=== PATIENT | male | born 1985 | race Caucasian/White ===

== ENCOUNTER 2018-01-24 14:40 | Emergency (ER) | payer SELFPAY ==
[2018-01-24] MEDS ORDERED: AZITHROMYCIN 250 MG TAB ONE (19:56)
[2018-01-24] MEDS ORDERED: LEVALBUTEROL 1.25 MG/3 ML NEB ONE (19:57)
[2018-01-24] MEDS ORDERED: CEFTRIAXONE/SWI 1gm 1 GM/10 ML SYR ONE (19:57)
--- NOTE | 2018-01-24 20:01 | RAD REPORT ---
EXAM DESCRIPTION: RAD - Chest Pa And Lat (2 Views) - 01/24/2018 6:40 pm CLINICAL HISTORY: Productive cough, pain COMPARISON: None. TECHNIQUE: PA and lateral views of the chest were obtained. FINDINGS: The lungs are clear. Heart size is normal and central vasculature is within normal limit s. No pleural effusion or pneumothorax seen. No acute bony finding noted. No aortic abnormality. IMPRESSION: No acute cardiopulmonary process.
[2018-01-24 20:17] LABS: Absolute Monocytes 0.4 K/uL (0.1-1.3); Absolute Neutrophil 2.9 K/uL (1.8-8.0); Basophils % 0.6 % (0-1.3); Eosinophils % 6.2 % (0-4.4); Hematocrit 41.7 % (39.6-49.0); Lymphocytes % 22.2 % (15.3-44.8); MCH 28.1 pg (27.0-35.0); MCV 83.8 fL (80-100); MPV 10.1 fL (7.6-11.3); Monocytes % 9.6 % (3.3-12.3); RBC Red Blood Cell Count 4.98 M/uL (4.33-5.43)
[2018-01-24 20:18] LABS: Bicarbonate 31 mEq/L (21-31); Glucose Level 106 mg/dL (65-120); Potassium 4.1 mEq/L (3.6-5.0); Sodium Level 136 mEq/L (135-145)
[2018-01-24 20:19] LABS: BUN Blood Urea Nitrogen 10 mg/dL (6-20)
[2018-01-24] MEDS ORDERED: LORazepam 2 MG/ML VIAL ONE (21:01)
--- NOTE | 2018-01-24 21:09 | ER ---
Nurse's Notes [facility] Name: Jeromy Hobbs Age: 32 yrs Sex: Male : 1985 Arrival Date: 01/24/2018 Time: 14:45 Bed 6 Private MD: Diagnosis: Bronchitis, not specified as acute or chronic Presentation: 01/24 14:46 Presenting complaint: Patient states: Productive cough, pain with cough, fever, and hb mild SOB x 4 days. Transition of care: patient was not received from another setting of care. Onset of symptoms was January 21, 2018. Risk Assessment: Do you want to hurt yourself or someone else? Patient reports no desire to harm self or others. Care prior to arrival: Medication(s) given: Tylenol, at 0900 today. 14:46 Method Of Arrival: Ambulatory hb 14:46 Acuity: RHETT 3 hb 21:20 Initial Sepsis Screen: Does the patient meet any 2 criteria? No. Patient's initial ao sepsis screen is negative. Does the patient have a suspected source of infection? No. Patient's initial sepsis screen is negative. Triage Assessment: 21:21 General: Appears Behavior is. Respiratory: the patient has moderate shortness of ao breath. Respiratory: Airway is patent Respiratory effort is even, unlabored. Historical: - Allergies: 14:48 No Known Allergies; hb - PMHx: 14:48 None; hb - Immunization history:: Adult Immunizations up to date. - Social history:: Smoking status: Patient uses tobacco products, smokes one pack cigarettes per day. - Ebola Screening: : No symptoms or risks identified at this time. Screenin:15 Abuse screen: Denies threats or abuse. Denies injuries from another. Nutritional sv screening: No deficits noted. Tuberculosis screening: No symptoms or risk factors identified. Fall Risk None identified. Assessment: 18:15 General: Appears in no apparent distress. uncomfortable, well developed, Behavior is sv calm, cooperative, appropriate for age, Reports chills for 2-3 days, feeling ill for 2-3 days. Pain: Complains of pain in chest and ribs Pain currently is 8 out of 10 on a pain scale. Quality of pain is described as sharp, tender, Pain began Wednesday Is intermittent, episodic, Aggravated by coughing. Neuro: Level of Consciousness is awake, alert, obeys commands, Oriented to person, place, time, situation, Moves all extremities. Full function Gait is steady, Speech is normal. Cardiovascular: Heart tones S1 S2 present Patient's skin is warm and dry. Pulses are 3+ in right brachial artery and left brachial artery. Respiratory: Reports cough that is productive, persistent pain with cough Airway is patent Respiratory effort is even, unlabored, Respiratory pattern is regular, symmetrical, Breath sounds with wheezes bilaterally. EENT: Oral mucosa is moist. Throat is clear Reports pain in left aspect of posterior pharynx and right aspect of posterior pharynx when swallowing. Derm: Skin is pink, warm \T\ dry. Musculoskeletal: Range of motion: intact in all extremities. 19:20 General: Appears in no apparent distress. comfortable, Behavior is calm, cooperative, ao appropriate for age. Pain: Denies pain. Neuro: Level of Consciousness is awake, alert, obeys commands, Moves all extremities. Speech is normal. Cardiovascular: Heart tones S1 S2 Capillary refill < 3 seconds Patient's skin is warm and dry. Respiratory: Airway is patent Respiratory effort is even, unlabored, Respiratory pattern is regular, symmetrical. GI: Abdomen is non-distended. : No signs and/or symptoms were reported regarding the genitourinary system. EENT: No signs and/or symptoms were reported regarding the EENT system. Derm: No signs and/or symptoms reported regarding the dermatologic system. Musculoskeletal: No signs and/or symptoms reported regarding the musculoskeletal system. 20:36 Reassessment: Patient appears in no apparent distress at this time. Patient and/or ao family updated on plan of care and expected duration. Pain level reassessed. Patient is alert, oriented x 3, equal unlabored respirations, skin warm/dry/pink. Delay in getting an IV. Waiting on dispo at this moment. Patient has no questions at this moment. 21:20 Cardiovascular: Rhythm is regular. ao 21:23 Reassessment: DC instructions given to patient. Patient agree with the POC and to ao follow up with PCP. Provided with a work note. Vital Signs: 14:47 BP 145 / 88; Pulse 91; Resp 18; Temp 98.6; Pulse Ox 97% on R/A; Weight 102.06 kg; hb Height 6 ft. (182.88 cm); Pain 8/10; 17:19 BP 154 / 100; Pulse 73; Resp 16; Temp 99; Pulse Ox 97% on R/A; Pain 8/10; hb 18:32 Pulse 76; Resp 20; Pulse Ox 99% on R/A; sv 19:30 BP 142 / 96; Pulse 83; Resp 18; Pulse Ox 99% on R/A; Pain 0/10; ao 20:36 BP 133 / 98; Pulse 82; Resp 16; Pulse Ox 98% on R/A; Pain 0/10; ao 14:47 Body Mass Index 30.52 (102.06 kg, 182.88 cm) hb ED Course: 14:45 Patient arrived in ED. hb 14:47 Triage completed. hb 14:47 Arm band placed on right wrist. hb 17:54 Ana Landeros, RN is Primary Nurse. sv 17:55 Patient taken to an exam room, via wheelchair. sv 18:15 Patient has correct armband on for positive identification. Placed in gown. Bed in low sv position. Adult w/ patient. Pulse ox on. Door closed. Head of bed elevated. 18:15 Missed attempt(s): 22 gauge in left antecubital area. Bleeding controlled, band aid sv applied, catheter tip intact. 18:25 Missed attempt(s): 22 gauge in right antecubital area. done by Ketty BENITEZ. Bleeding sv controlled, band aid applied, catheter tip intact. 18:32 Patient moved to radiology via wheelchair. sv 18:37 X-ray completed. Patient tolerated procedure well. ml 18:38 Patient moved back from radiology. ml 18:39 Chest Pa And Lat (2 Views) XRAY In Process Unspecified. EDMS 19:06 Report given to Steff BENITEZ, Sidney RN, Mateo RN. sv 19:07 Primary Nurse role handed off by Ana Landeros, EMMANUEL sv 19:08 Sidney Kwon, RN is Primary Nurse. ao 19:18 Prince Kilgore MD is Attending Physician. kdr 19:55 Inserted 18 gauge 10 cm midline to right upper basilic vein on first attempt. Line with fc good blood return and flushes well. 21:20 No provider procedures requiring assistance completed. IV discontinued, intact, ao bleeding controlled, No redness/swelling at site. Pressure dressing applied. Administered Medications: 20:22 Drug: Xopenex (3) 1.25 mg Route: Inhalation; mg2 22:31 Follow up: Response: No adverse reaction ao 20:23 Drug: Rocephin - (cefTRIAXone) 1 grams Route: IVPB; Infused Over: 30 mins; Site: right mg2 upper arm; 22:00 Follow up: Response: No adverse reaction; IV Status: Completed infusion; IV Intake: 10mlao 20:23 Drug: Zithromax 500 mg Route: PO; mg2 22:00 Follow up: Response: No adverse reaction ao 21:03 Drug: Ativan 1 mg Route: IVP; Site: right antecubital; mg2 22:32 Follow up: Response: No adverse reaction ao Intake: 22:00 IV: 10ml; Total: 10ml. ao Outcome: 21:09 Discharge ordered by . kdr 21:20 Discharged to home ambulatory. ao 21:20 Condition: stable 21:20 Discharge instructions given to patient, Instructed on discharge instructions, follow up and referral plans. Demonstrated understanding of instructions, follow-up care, medications, Prescriptions given X 2. 21:23 Patient left the ED. ao Signatures: Dispatcher [employer] EDAna Soni RN Prince Zapata MD MD kdr Chretien, Felicia, RN RN Jelly Kirk Alex RN RN Marsha Jennings RN RN Mateo Campos RN RN mg2 Corrections: (The following items were deleted from the chart) 18:31 18:15 General: Appears in no apparent distress. uncomfortable, well developed, Behavior sv is calm, cooperative, appropriate for age, sv 18:32 18:15 Respiratory: Airway is patent Respiratory effort is even, unlabored, Respiratory sv pattern is regular, symmetrical, Breath sounds with wheezes bilaterally. sv
--- NOTE | 2018-01-24 21:09 | EDPHYS ---
Physician Documentation [facility] Name: Jeromy Hobbs Age: 32 yrs Sex: Male : 1985 Arrival Date: 01/24/2018 Time: 14:45 Bed 6 Private MD: ED Physician Prince Kilgore HPI: 01/25 00:05 This 32 yrs old Male presents to ER via Ambulatory with complaints of kdr Shortness Of Breath, Painful Cough. 00:05 The patient has shortness of breath at rest, with light activity. Onset: The kdr symptoms/episode began/occurred gradually, 4 day(s) ago. Duration: The symptoms are continuous. Duration: The symptoms are continuous, and are steadily getting worse. The patient's shortness of breath is aggravated by coughing, eating, exertion, walking, is alleviated by nothing. Associated signs and symptoms: Pertinent positives: non-productive cough, fever, nausea, Pertinent negatives: dizziness, hemoptysis, nausea, numbness in extremities, visual changes. Severity of symptoms: At their worst the symptoms were mild moderate in the emergency department the symptoms are unchanged. The patient has not experienced similar symptoms in the past. The patient has not recently seen a physician. Historical: - Allergies: 01/24 14:48 No Known Allergies; hb - PMHx: 14:48 None; hb - Immunization history:: Adult Immunizations up to date. - Social history:: Smoking status: Patient uses tobacco products, smokes one pack cigarettes per day. - Ebola Screening: : No symptoms or risks identified at this time. ROS: 01/25 00:05 Constitutional: Negative for fever, chills, and weight loss, Eyes: Negative for injury, kdr pain, redness, and discharge, Neck: Negative for injury, pain, and swelling, Cardiovascular: Negative for chest pain, palpitations, and edema, Abdomen/GI: Negative for abdominal pain, nausea, vomiting, diarrhea, and constipation, Back: Negative for injury and pain, : Negative for injury, bleeding, discharge, and swelling, MS/Extremity: Negative for injury and deformity, Skin: Negative for injury, rash, and discoloration, Neuro: Negative for headache, weakness, numbness, tingling, and seizure activity. Psych: Negative for depression, anxiety, suicide ideation, homicidal ideation, and hallucinations, Allergy/Immunology: Negative for hives, rash, and allergies, Endocrine: Negative for neck swelling, polydipsia, polyuria, polyphagia, and marked weight changes, Hematologic/Lymphatic: Negative for swollen nodes, abnormal bleeding, and unusual bruising. Respiratory: Positive for cough, "sounds productive", dyspnea on exertion, pleurisy, shortness of breath, wheezing, inspiratory, expiratory. Exam: 00:05 Constitutional: This is a well developed, well nourished patient who is awake, alert, kdr and in no acute distress. Head/Face: Normocephalic, atraumatic. Eyes: Pupils equal round and reactive to light, extra-ocular motions intact. Lids and lashes normal. Conjunctiva and sclera are non-icteric and not injected. Cornea within normal limits. Periorbital areas with no swelling, redness, or edema. Neck: Trachea midline, no thyromegaly or masses palpated, and no cervical lymphadenopathy. Supple, full range of motion without nuchal rigidity, or vertebral point tenderness. No Meningismus. Chest/axilla: Normal chest wall appearance and motion. Nontender with no deformity. No lesions are appreciated. Cardiovascular: Regular rate and rhythm with a normal S1 and S2. No gallops, murmurs, or rubs. Normal PMI, no JVD. No pulse deficits. Abdomen/GI: Soft, non-tender, with normal bowel sounds. No distension or tympany. No guarding or rebound. No evidence of tenderness throughout. Back: No spinal tenderness. No costovertebral tenderness. Full range of motion. Skin: Warm, dry with normal turgor. Normal color with no rashes, no lesions, and no evidence of cellulitis. MS/ Extremity: Pulses equal, no cyanosis. Neurovascular intact. Full, normal range of motion. Neuro: Awake and alert, GCS 15, oriented to person, place, time, and situation. Cranial nerves II-XII grossly intact. Motor strength 5/5 in all extremities. Sensory grossly intact. Cerebellar exam normal. Normal gait. Psych: Awake, alert, with orientation to person, place and time. Behavior, mood, and affect are within normal limits. 00:05 Respiratory: the patient does not display signs of respiratory distress, Respirations: normal, Breath sounds: rales, that are moderate, are heard diffusely, bronchial sounds, that are moderate, are heard diffusely, rhonchi, that are mild, are scattered, are heard diffusely, stridor, is not appreciated, + upper airway congestion. wheezing: that is mild, is scattered, is heard diffusely, is actually worse than before. Vital Signs: 01/24 14:47 BP 145 / 88; Pulse 91; Resp 18; Temp 98.6; Pulse Ox 97% on R/A; Weight 102.06 kg; hb Height 6 ft. (182.88 cm); Pain 8/10; 17:19 BP 154 / 100; Pulse 73; Resp 16; Temp 99; Pulse Ox 97% on R/A; Pain 8/10; hb 18:32 Pulse 76; Resp 20; Pulse Ox 99% on R/A; sv 19:30 BP 142 / 96; Pulse 83; Resp 18; Pulse Ox 99% on R/A; Pain 0/10; ao 20:36 BP 133 / 98; Pulse 82; Resp 16; Pulse Ox 98% on R/A; Pain 0/10; ao 14:47 Body Mass Index 30.52 (102.06 kg, 182.88 cm) hb MDM: 21:09 Patient medically screened. kdr 01/25 00:05 Data reviewed: vital signs, nurses notes, lab test result(s), radiologic studies. kdr Counseling: I had a detailed discussion with the patient and/or guardian regarding: the historical points, exam findings, and any diagnostic results supporting the discharge/admit diagnosis, lab results, radiology results, the need for outpatient follow up. Special discussion: I discussed with the patient/guardian in detail that at this point there is no indication for admission to the hospital. It is understood, however, that if the symptoms persist or worsen the patient needs to return immediately for re-evaluation. 01/24 18:02 Order name: CBC with Diff; Complete Time: 21:08 sv 01/24 18:02 Order name: BMP; Complete Time: 21:08 sv 01/24 17:54 Order name: Chest Pa And Lat (2 Views) XRAY; Complete Time: 20:03 sv 01/24 19:27 Order name: Blood Culture Adult (2) kdr 01/24 18:02 Order name: IV Saline Lock; Complete Time: 20:23 sv 01/24 18:02 Order name: Labs collected and sent; Complete Time: 20:23 sv Administered Medications: 01/24 20:22 Drug: Xopenex (3) 1.25 mg Route: Inhalation; mg2 22:31 Follow up: Response: No adverse reaction ao 20:23 Drug: Rocephin - (cefTRIAXone) 1 grams Route: IVPB; Infused Over: 30 mins; Site: right mg2 upper arm; 22:00 Follow up: Response: No adverse reaction; IV Status: Completed infusion; IV Intake: 10mlao 20:23 Drug: Zithromax 500 mg Route: PO; mg2 22:00 Follow up: Response: No adverse reaction ao 21:03 Drug: Ativan 1 mg Route: IVP; Site: right antecubital; mg2 22:32 Follow up: Response: No adverse reaction ao Disposition: 01/24/18 21:09 Discharged to Home. Impression: Bronchitis, not specified as acute or chronic. - Condition is Stable. - Discharge Instructions: How to Use an Inhaler, Acute Bronchitis, [id number]. - Prescriptions for Zithromax Z- Nate 250 mg Oral Tablet - take 1 tablet by ORAL route once daily for 4 days; 4 tablet. Albuterol Sulfate 90 mcg/actuation - inhale 1-2 puff by INHALATION route every 4-6 hours; 1 Inhaler. - Medication Reconciliation Form, Thank You Letter, Antibiotic Education, Prescription Opioid Use, Work release form form. - Follow up: Private Physician; When: 2 - 3 days; Reason: If symptoms return, Further diagnostic work-up, Recheck today's complaints, Continuance of care, Re-evaluation by your physician. - Problem is new. - Symptoms have improved. Signatures: Dispatcher [employer] Ana Soni RN RN Prince Lindsey MD MD [facility] Sidney Kwon RN RN ao Baxter, Heather, RN RN Mateo Campos RN RN mg2 Corrections: (The following items were deleted from the chart) 21:23 21:09 01/24/2018 21:09 Discharged to Home. Impression: Bronchitis, not specified as ao acute or chronic. Condition is Stable. Forms are Medication Reconciliation Form, Thank You Letter, Antibiotic Education, Prescription Opioid Use. Follow up: Private Physician; When: 2 - 3 days; Reason: If symptoms return, Further diagnostic work-up, Recheck today's complaints, Continuance of care, Re-evaluation by your physician. Problem is new. Symptoms have improved. kdr
== END 2018-01-24 21:23 | disposition home or self-care (01) ==
LOC: ER 14:40
DX: J40 Bronchitis, not specified as acute or chronic (principal); F17.210 Nicotine dependence, cigarettes, uncomplicated
CPT/HCPCS: 36415; 71046; 80048; 85025; 87040; 96365; 96366; 96375; 99284; J0696

== ENCOUNTER 2018-02-16 19:15 | Emergency (ER) | payer OTHER, SELFPAY ==
--- NOTE | 2018-02-16 21:06 | ER ---
Nurse's Notes [facility] Name: Jeromy Hobbs Age: 32 yrs Sex: Male : 1985 Arrival Date: 02/16/2018 Time: 19:16 Bed 15 Private MD: Diagnosis: Strain of other muscle(s) and tendon(s) at lower leg level, right leg Presentation: 02/16 19:18 Presenting complaint: Patient states: "I don't know what I did to my left foot but it aj1 started hurting in the middle of the night on Wednesday, so on Wednesday I went to work, it was hurting a lot so my job sent me home and told me to go see the doctor. My foot doesn't hurt anymore but now my calf is really hurting." Denies any recent long car/plane trips. No redness or swelling noted to left calf. Transition of care: patient was not received from another setting of care. Onset of symptoms was February 14, 2018. Risk Assessment: Do you want to hurt yourself or someone else? Patient reports no desire to harm self or others. Initial Sepsis Screen: Does the patient meet any 2 criteria? No. Patient's initial sepsis screen is negative. Does the patient have a suspected source of infection? No. Patient's initial sepsis screen is negative. Care prior to arrival: None. 19:18 Method Of Arrival: Ambulatory aj 19:18 Acuity: RHETT 4 aj1 Triage Assessment: 19:23 General: Appears in no apparent distress. comfortable, Behavior is calm, cooperative, aj1 appropriate for age. Pain: Complains of pain in left calf Pain does not radiate. Pain currently is 5 out of 10 on a pain scale. Quality of pain is described as "pulling" Pain began 2-3 days ago. Is continuous, Aggravated by repositioning. EENT: No signs and/or symptoms were reported regarding the EENT system. Neuro: Level of Consciousness is awake, alert, obeys commands. Cardiovascular: Patient's skin is warm and dry. Respiratory: Airway is patent Respiratory effort is even, unlabored, Respiratory pattern is regular, symmetrical. Derm: Skin is pink, warm \\T\\ dry. normal. Musculoskeletal: Circulation, motion, and sensation intact. Range of motion: intact in all extremities. Historical: - Allergies: 19:23 No Known Allergies; aj1 - Home Meds: 19:23 suboxone [Active]; aj1 - PMHx: 19:23 None; aj1 - PSHx: 19:23 surgery for broken femur; aj1 - Immunization history:: Flu vaccine is not up to date. - Social history:: Smoking status: Patient uses tobacco products, smokes one pack cigarettes per day. - Ebola Screening: : Patient denies travel to an Ebola-affected area in the 21 days before illness onset. Screenin:01 Abuse screen: Denies threats or abuse. Denies injuries from another. Nutritional ao screening: No deficits noted. Tuberculosis screening: No symptoms or risk factors identified. Fall Risk None identified. Assessment: 19:59 General: Appears in no apparent distress. comfortable, Behavior is calm, cooperative, ao appropriate for age. Pain: Denies pain. Neuro: Level of Consciousness is awake, alert, obeys commands, Oriented to person, place, time, situation, Appropriate for age Moves all extremities. Speech is normal, Facial symmetry appears normal. Cardiovascular: Capillary refill < 3 seconds Patient's skin is warm and dry. Respiratory: Airway is patent Respiratory effort is even, unlabored, Respiratory pattern is regular, symmetrical. GI: Abdomen is flat, non-distended. : No signs and/or symptoms were reported regarding the genitourinary system. EENT: No signs and/or symptoms were reported regarding the EENT system. Derm: Reports burning, pain that is 3 out of 10 on a pain scale. in the left calf. Musculoskeletal: Range of motion: intact in all extremities, Reports pain in left leg and left calf. 20:42 Reassessment: Patient appears in no apparent distress at this time. Patient and/or ao family updated on plan of care and expected duration. Pain level reassessed. Patient is alert, oriented x 3, equal unlabored respirations, skin warm/dry/pink. 21:28 Reassessment: Discharge instructions given to patient. Patient agree with the POC and ao to follow up with PCP. Provided with a work note. Patient has no questions at this time. Vital Signs: 19:23 BP 153 / 106; Pulse 91; Resp 18; Temp 99.1; Pulse Ox 100% on R/A; Weight 102.06 kg (R); aj1 Height 6 ft. 0 in. (182.88 cm); Pain 5/10; 20:42 BP 148 / 96; Pulse 92; Resp 16; Pulse Ox 100% ; ao 19:23 Body Mass Index 30.52 (102.06 kg, 182.88 cm) [facility] ED Course: 19:16 Patient arrived in ED. ds1 19:18 Jose Miguel Sharpe PA is PHCP. [facility] 19:18 Zurdo Patel MD is Attending Physician. [facility] 19:22 Triage completed. aj1 19:23 Arm band placed on Patient placed in an exam room. aj1 19:57 Sidney Kwon, RN is Primary Nurse. ao 20:02 Patient has correct armband on for positive identification. Pulse ox on. NIBP on. ao 20:34 Patient taken to ultrasound. via wheelchair. lc3 20:34 Ultrasound completed. Patient tolerated well. Patient moved back from ultrasound. lc3 20:35 US Extremity Venous Unilateral Ltd In Process Unspecified. EDMS 21:29 No provider procedures requiring assistance completed. Patient did not have IV access ao during this emergency room visit. Administered Medications: No medications were administered Outcome: 21:06 Discharge ordered by MD. m 21:29 Discharged to home ambulatory. ao 21:29 Condition: stable 21:29 Discharge instructions given to patient, Instructed on discharge instructions, follow up and referral plans. Demonstrated understanding of instructions, follow-up care, medications, Prescriptions given X 1. 21:30 Patient left the ED. ao Signatures: Dispatcher [employer] EDMS Yanely Hobbs, EMMANUEL RN aj Jose Miguel Sharpe PA PA [facility] Digna Olvera ds1 Nacho Odom lc3 Sidney Kwon, RN RN ao
--- NOTE | 2018-02-16 21:06 | EDPHYS ---
Physician Documentation [facility] Name: Jeromy Hobbs Age: 32 yrs Sex: Male : 1985 Arrival Date: 02/16/2018 Time: 19:16 Bed 15 Private MD: ED Physician Zurdo Patel HPI: 02/16 19:28 This 32 yrs old Male presents to ER via Ambulatory with complaints of Foot jmm Pain. 19:28 The patient presents with pain, that is acute. Onset: The symptoms/episode jmm began/occurred gradually. This is a 32 year old male with no chronic medical conditions that presents to the ED with right lower leg pain. The patient states the pain initially began as foot pain. The patient does not currently have foot pain but states he has developed right calf pain today. Denies chest pain or shortness of breath. Denies fever. Denies trauma. Historical: - Allergies: 19:23 No Known Allergies; aj1 - Home Meds: 19:23 suboxone [Active]; aj1 - PMHx: 19:23 None; aj1 - PSHx: 19:23 surgery for broken femur; aj1 - Immunization history:: Flu vaccine is not up to date. - Social history:: Smoking status: Patient uses tobacco products, smokes one pack cigarettes per day. - Ebola Screening: : Patient denies travel to an Ebola-affected area in the 21 days before illness onset. ROS: 19:28 Constitutional: Negative for fever, chills, and weight loss. jmm 19:28 Respiratory: Negative for shortness of breath. 19:28 MS/extremity: Positive for pain. 19:28 All other systems are negative. Exam: 19:28 Constitutional: This is a well developed, well nourished patient who is awake, alert, jmm and in no acute distress. Eyes: EOMI, no conjunctival erythema appreciated ENT: Moist Mucus Membranes Neck: Trachea midline, Supple Cardiovascular: Regular rate and rhythm. No edema appreciated Respiratory: Normal respirations, no respiratory distress appreciated 19:28 Musculoskeletal/extremity: pain noted to the right lower leg, no swelling or erythema appreciated. 19:28 Skin: Appearance: Color: normal in color. 19:28 Neuro: Orientation: is normal, Mentation: is normal, Memory: is normal, Gait: is steady. 19:28 Psych: Behavior/mood is pleasant, cooperative. Vital Signs: 19:23 BP 153 / 106; Pulse 91; Resp 18; Temp 99.1; Pulse Ox 100% on R/A; Weight 102.06 kg (R); aj1 Height 6 ft. 0 in. (182.88 cm); Pain 5/10; 20:42 BP 148 / 96; Pulse 92; Resp 16; Pulse Ox 100% ; ao 19:23 Body Mass Index 30.52 (102.06 kg, 182.88 cm) aj1 MDM: 19:[address] [facility] 21:03 Data reviewed: vital signs, nurses notes. Counseling: I had a detailed discussion with tomas the patient and/or guardian regarding: the historical points, exam findings, and any diagnostic results supporting the discharge/admit diagnosis, radiology results, the need for outpatient follow up, to return to the emergency department if symptoms worsen or persist or if there are any questions or concerns that arise at home. ED course: Symptoms appear most likely due to a strain of his gastrocnemius. US negative for DVT. Patient advised to follow up with PCP for reevaluation. Patient understood and agrees with the plan of care. . 02/16 19:46 Order name: US Extremity Venous Unilateral Ltd; Complete Time: 21:14 [facility] Administered Medications: No medications were administered Disposition: 02/17 03:44 Co-signature as Attending Physician, Zurdo Patel MD. Disposition: 02/16/18 21:06 Discharged to Home. Impression: Strain of other muscle(s) and tendon(s) at lower leg level, right leg. - Condition is Stable. - Discharge Instructions: Muscle Strain. - Prescriptions for Ibuprofen 800 mg Oral Tablet - take 1 tablet by ORAL route every 8 hours As needed take with food; 30 tablet. - Medication Reconciliation Form, Thank You Letter, Antibiotic Education, Prescription Opioid Use, Work release form form. - Follow up: Private Physician; When: 2 - 3 days; Reason: Continuance of care. Signatures: Dispatcher [employer] EDMS Yanely Hobbs RN RN aj1 Jose Miguel Sharpe PA PA jmm Ortiz, Alex, RN RN ao Starr, Gregory, MD MD gs Corrections: (The following items were deleted from the chart) 02/16 21:30 21:06 02/16/2018 21:06 Discharged to Home. Impression: Strain of other muscle(s) and ao tendon(s) at lower leg level, right leg. Condition is Stable. Forms are Medication Reconciliation Form, Thank You Letter, Antibiotic Education, Prescription Opioid Use. Follow up: Private Physician; When: 2 - 3 days; Reason: Continuance of care. tomas
--- NOTE | 2018-02-16 21:12 | RAD REPORT ---
EXAM DESCRIPTION: WARRENExalisha Venous Uni Ltd02/16/2018 8:36 pm CLINICAL HISTORY: Right leg pain and swelling. COMPARISON: None. FINDINGS: Right common femoral, superficial femoral, popliteal and right posterior tibial veins are compressible and demonstrate augmentation. Doppler demonstrates good flow. IMPRESSION: No evidence of deep venous thrombosis involving the right lower extremity.
== END 2018-02-16 21:30 | disposition home or self-care (01) ==
LOC: ER 19:15
DX: S86.911A Strain of unspecified muscle(s) and tendon(s) at lower leg level, right leg, initial encounter (principal); X58.XXXA Exposure to other specified factors, initial encounter; Y93.9 Activity, unspecified; Y92.9 Unspecified place or not applicable; F17.210 Nicotine dependence, cigarettes, uncomplicated
CPT/HCPCS: 93971; 99284

== ENCOUNTER 2018-09-01 12:28 | Emergency (ER) | payer OTHER, SELFPAY ==
[2018-09-01] MEDS ORDERED: NA CHLORIDE 0.9% 1,000 ML ONE (14:24)
[2018-09-01 14:42] LABS: Albumin 4.2 g/dL (3.4-5.0); Bilirubin Direct 0.1 mg/dL (0-0.2); Bilirubin Total 0.4 mg/dL (0.2-1.0); Potassium 3.8 mmol/L (3.5-5.1); Protein, Total 8.1 g/dL (6.4-8.2)
--- NOTE | 2018-09-01 14:47 | EDPHYS ---
Physician Documentation [facility] Name: Jeromy Hobbs Age: 32 yrs Sex: Male : 1985 Arrival Date: 09/01/2018 Time: 12:41 Bed 19 Private MD: ED Physician Prince Kilgore HPI: 09/01 13:08 This 32 yrs old Male presents to ER via EMS with complaints of Palpitations. snw 13:08 The patient presents with a history of heart racing. Context: The symptoms occur with snw light activity. Onset: The symptoms/episode began/occurred suddenly, x 2 days, pt states he drank a Monster yest and today and thinks maybe "freaked" himself out. Duration: The patient or guardian reports multiple episodes, that have now resolved. Associated signs and symptoms: The patient has no apparent associated signs or symptoms. Severity of symptoms: At their worst the symptoms were moderate severe. The patient has not experienced similar symptoms in the past. The patient has not recently seen a physician. Historical: - Allergies: 12:44 No Known Allergies; ls4 - Home Meds: 12:44 Suboxone [Active]; ls4 - PMHx: 12:44 None; ls4 - Immunization history:: Adult Immunizations up to date. - Social history:: Smoking status: Patient/guardian denies using tobacco, but has a distant history of tobacco abuse. - Ebola Screening: : No symptoms or risks identified at this time. ROS: 13:08 Constitutional: Negative for fever, chills, and weight loss, Eyes: Negative for injury, snw pain, redness, and discharge, ENT: Negative for injury, pain, and discharge, Neck: Negative for injury, pain, and swelling, Respiratory: Negative for shortness of breath, cough, wheezing, and pleuritic chest pain, Abdomen/GI: Negative for abdominal pain, nausea, vomiting, diarrhea, and constipation, Back: Negative for injury and pain, : Negative for injury, bleeding, discharge, and swelling, MS/Extremity: Negative for injury and deformity, Skin: Negative for injury, rash, and discoloration, Neuro: Negative for headache, weakness, numbness, tingling, and seizure, Psych: Negative for depression, anxiety, suicide ideation, homicidal ideation, and hallucinations. 13:08 Cardiovascular: Positive for chest pain, palpitations. Exam: 13:06 Constitutional: This is a well developed, well nourished patient who is awake, alert, snw and in no acute distress. Head/Face: Normocephalic, atraumatic. Eyes: Pupils equal round and reactive to light, extra-ocular motions intact. Lids and lashes normal. Conjunctiva and sclera are non-icteric and not injected. Cornea within normal limits. Periorbital areas with no swelling, redness, or edema. ENT: Nares patent. No nasal discharge, no septal abnormalities noted. Tympanic membranes are normal and external auditory canals are clear. Oropharynx with no redness, swelling, or masses, exudates, or evidence of obstruction, uvula midline. Mucous membranes moist. Neck: Trachea midline, no thyromegaly or masses palpated, and no cervical lymphadenopathy. Supple, full range of motion without nuchal rigidity, or vertebral point tenderness. No Meningismus. Chest/axilla: Normal chest wall appearance and motion. Nontender with no deformity. No lesions are appreciated. Respiratory: Lungs have equal breath sounds bilaterally, clear to auscultation and percussion. No rales, rhonchi or wheezes noted. No increased work of breathing, no retractions or nasal flaring. Abdomen/GI: Soft, non-tender, with normal bowel sounds. No distension or tympany. No guarding or rebound. No evidence of tenderness throughout. Back: No spinal tenderness. No costovertebral tenderness. Full range of motion. Skin: Warm, dry with normal turgor. Normal color with no rashes, no lesions, and no evidence of cellulitis. MS/ Extremity: Pulses equal, no cyanosis. Neurovascular intact. Full, normal range of motion. Neuro: Awake and alert, GCS 15, oriented to person, place, time, and situation. Cranial nerves II-XII grossly intact. Motor strength 5/5 in all extremities. Sensory grossly intact. Cerebellar exam normal. Normal gait. 13:06 Cardiovascular: Rate: tachycardic, Rhythm: regular, Pulses: no pulse deficits are appreciated, Heart sounds: normal, Edema: is not appreciated. Vital Signs: 12:44 BP 161 / 86; Pulse 101; Resp 18; Temp 98.4; Pulse Ox 97% on R/A; Pain 3/10; ls4 14:37 BP 143 / 87; Pulse 91; Resp 16; Temp 98.2; Pulse Ox 99% on R/A; Pain 3/10; ls4 15:04 BP 152 / 78; Pulse 78; Resp 18; Pulse Ox 98% on R/A; Pain 3/10; ls4 MDM: 12:58 Patient medically screened. snw 14:54 Data reviewed: vital signs, nurses notes. Data interpreted: Pulse oximetry: on room air snw is 99 %. Interpretation: normal. Counseling: I had a detailed discussion with the patient and/or guardian regarding: the historical points, exam findings, and any diagnostic results supporting the discharge/admit diagnosis, the presence of at least one elevated blood pressure reading (>120/80) during this emergency department visit, lab results, the need for outpatient follow up, to return to the emergency department if symptoms worsen or persist or if there are any questions or concerns that arise at home. Special discussion: Based on the history and exam findings, there is no indication for further emergent testing or inpatient evaluation. I discussed with the patient/guardian the need to see the primary care provider for further evaluation of the symptoms. 09/01 13:06 Order name: Basic Metabolic Panel; Complete Time: 14:45 snw 09/01 13:06 Order name: CBC with Diff snw 09/01 12:42 Order name: EKG; Complete Time: 12:42 snw 09/01 12:42 Order name: EKG - Nurse/Tech; Complete Time: 13:01 snw 09/01 13:06 Order name: Hepatic Function; Complete Time: 14:45 snw 09/01 13:06 Order name: IV Saline Lock; Complete Time: 14:34 snw 09/01 13:06 Order name: Labs collected and sent; Complete Time: 14:34 snw Administered Medications: 14:05 Drug: NS 0.9% 1000 ml Route: IV; Rate: 1 bolus; Site: right hand; ls4 15:09 Follow up: IV Status: Completed infusion; IV Intake: 1000ml ls4 Disposition: 09/01/18 14:46 Discharged to Home. Impression: Palpitations. - Condition is Stable. - Discharge Instructions: Nonspecific Chest Pain, Hypertension, Palpitations, Rehydration, Adult. - Work release form, Medication Reconciliation Form, Thank You Letter, Antibiotic Education, Prescription Opioid Use form. - Follow up: Private Physician; When: 1 - 2 days; Reason: Recheck today's complaints, Continuance of care, Re-evaluation by your physician. Follow up: Emergency Department; When: As needed; Reason: Worsening of condition. - Notes: Avoid dehydration, avoid energy drinks Addendum: 09/08/2018 09:22 Co-signature as Attending Physician, Prince Kilgore MD I agree with the assessment and k dr plan of care. Signatures: Dispatcher [employer] EDGA Prince Kilgore MD MD [facility] Su Serna, UNCLAIMED PROPERTY MANAGER-C UNCLAIMED PROPERTY MANAGER-Csnw Ashwini Garduno RN RN ls4 Corrections: (The following items were deleted from the chart) 09/01 15:13 14:46 09/01/2018 14:46 Discharged to Home. Impression: Palpitations. Condition is ls4 Stable. Forms are Medication Reconciliation Form, Thank You Letter, Antibiotic Education, Prescription Opioid Use. Follow up: Private Physician; When: 1 - 2 days; Reason: Recheck today's complaints, Continuance of care, Re-evaluation by your physician. Follow up: Emergency Department; When: As needed; Reason: Worsening of condition. snw
--- NOTE | 2018-09-01 14:47 | ER ---
Nurse's Notes [facility] Name: Jeromy Hobbs Age: 32 yrs Sex: Male : 1985 Arrival Date: 09/01/2018 Time: 12:41 Bed 19 Private MD: Diagnosis: Palpitations Presentation: 09/01 12:41 Presenting complaint: Patient states: bought fit bit and have been noticing heart rates ls4 from 90 to 115. Today while at work it went as high as 140s. I started drinking Monster drinks yesterday and maybe that caused it. Transition of care: patient was not received from another setting of care. Onset of symptoms was September 01, 2018. Risk Assessment: Do you want to hurt yourself or someone else? Patient reports no desire to harm self or others. Initial Sepsis Screen: Does the patient meet any 2 criteria? No. Patient's initial sepsis screen is negative. Does the patient have a suspected source of infection? No. Patient's initial sepsis screen is negative. Care prior to arrival: None. 12:41 Method Of Arrival: EMS: [facility] ls4 12:41 Acuity: RHETT 3 ls4 Triage Assessment: 12:44 General: Appears in no apparent distress. ls4 12:49 General: Behavior is calm, cooperative. ls4 12:49 Neuro: No deficits noted. ls4 12:49 Cardiovascular: No deficits noted. Respiratory: Airway is patent Respiratory effort is ls4 even, unlabored, Respiratory pattern is regular, Breath sounds are clear bilaterally. Musculoskeletal: No deficits noted. 15:12 GI: No deficits noted. : No deficits noted. Derm: No deficits noted. ls4 Historical: - Allergies: 12:44 No Known Allergies; ls4 - Home Meds: 12:44 Suboxone [Active]; ls4 - PMHx: 12:44 None; ls4 - Immunization history:: Adult Immunizations up to date. - Social history:: Smoking status: Patient/guardian denies using tobacco, but has a distant history of tobacco abuse. - Ebola Screening: : No symptoms or risks identified at this time. Screenin:46 Abuse screen: Denies threats or abuse. Denies injuries from another. Nutritional ls4 screening: No deficits noted. Tuberculosis screening: No symptoms or risk factors identified. Fall Risk None identified. Assessment: 12:46 Pain: Complains of pain in chest Pain currently is 3 out of 10 on a pain scale. ls4 15:07 Reassessment: Patient and/or family updated on plan of care and expected duration. Pain ls4 level reassessed. Patient is alert, oriented x 3, equal unlabored respirations, skin warm/dry/pink. General: Appears SEE TRIAGE ASSESSMENT . Vital Signs: 12:44 BP 161 / 86; Pulse 101; Resp 18; Temp 98.4; Pulse Ox 97% on R/A; Pain 3/10; ls4 14:37 BP 143 / 87; Pulse 91; Resp 16; Temp 98.2; Pulse Ox 99% on R/A; Pain 3/10; ls4 15:04 BP 152 / 78; Pulse 78; Resp 18; Pulse Ox 98% on R/A; Pain 3/10; ls4 ED Course: 12:41 Patient arrived in ED. ls4 12:41 Su Serna FNP-C is [facility]. snw 12:41 Prince Kilgore MD is Attending Physician. snw 12:41 Ashwini Garduno, EMMANUEL is Primary Nurse. ls4 12:43 Triage completed. ls4 12:44 Arm band placed on right wrist. ls4 12:46 Patient has correct armband on for positive identification. Bed in low position. Call ls4 light in reach. Side rails up X 1. spring fitter helper on. Pulse ox on. NIBP on. 12:46 No provider procedures requiring assistance completed. ls4 12:55 EKG done, by electronic equipment maint tech. reviewed by Su QURESHI. sm3 14:38 Inserted saline lock: 24 gauge in right hand, using aseptic technique. ls4 15:07 IV discontinued, intact, bleeding controlled, No redness/swelling at site. Pressure ls4 dressing applied. Administered Medications: 14:05 Drug: NS 0.9% 1000 ml Route: IV; Rate: 1 bolus; Site: right hand; ls4 15:09 Follow up: IV Status: Completed infusion; IV Intake: 1000ml ls4 Intake: 15:09 IV: 1000ml; Total: 1000ml. ls4 Outcome: 14:46 Discharge ordered by . snw 15:07 Discharged to home ambulatory, with family. ls4 15:07 Condition: stable 15:07 Discharge instructions given to patient, family, Instructed on discharge instructions, follow up and referral plans. safety practices, Demonstrated understanding of instructions, follow-up care, medications, Prescriptions given X 1. 15:13 Patient left the ED. ls4 Signatures: Su Serna FNP-C STUDY LEAD-Lakeshia Randall 3 Ashwini Garduno RN RN ls4 Corrections: (The following items were deleted from the chart) 15:12 12:49 Respiratory: Airway is patent Respiratory effort is even, unlabored, Respiratory ls4 pattern is regular, Breath sounds are clear bilaterally. ls4
--- NOTE | 2018-09-02 14:04 | EKG ---
Test Date: 2018-09-01 Test Time: 12:48:40 Rehabilitation Therapy Aide: ESTHER MEASUREMENT RESULTS: Intervals: Rate: 83 DC: 164 QRSD: 84 QT: 360 QTc: 423 [place]: P: 24 DC: 164 QRS: 17 T: 30 INTERPRETIVE STATEMENTS: Normal sinus rhythm with sinus arrhythmia Normal ECG No previous ECG available for comparison Electronically Signed On 09-02-18 13:59:12 COMPUTER SYSTEMS DESIGN ANALYST by Crow Huitron
== END 2018-09-01 15:13 | disposition home or self-care (01) ==
LOC: ER 12:28
DX: R00.2 Palpitations (principal)
CPT/HCPCS: 36415; 80048; 80076; 85025; 93005; J7030